=== PATIENT | male | born 1970 ===

== ENCOUNTER 2017-05-01 07:09 | Inpatient (IN) | payer BC ==
[2017-04-23 09:59] VITALS: BMI 32.5
[2017-05-01] MEDS ORDERED: Iohexol 240 (50 ml) ONE (08:45)
[2017-05-01] MEDS ORDERED: Bupivacaine 0.5% Inj(30mL) ONE ×2 (08:45→12:47)
[2017-05-01] MEDS ORDERED: Vancomycin 1 g Inj ONE (08:57)
[2017-05-01] MEDS ORDERED: Propofol 10 mg/ml Inj (20 ML) ONE (09:00)
[2017-05-01] MEDS ORDERED: Midazolam 2 MG/2 ML VIAL ONE (09:01)
[2017-05-01] MEDS ORDERED: Rocuronium 10 mg/ml (5 ml) ONE (09:26)
[2017-05-01] MEDS ORDERED: Succinylcholine 200 mg/10 ml Inj IV ONE (09:26)
[2017-05-01] MEDS ORDERED: Desflurane Inhalation Anesthetic Liq (240 ml) ONE ×2 (10:44→13:05)
[2017-05-01] MEDS ORDERED: Collagen Hemostat Powder ONE (12:21)
[2017-05-01] MEDS ORDERED: Absorbable Gelatin Sponge Size 100 ONE (12:21)
[2017-05-01] MEDS ORDERED: Morphine 1 mg/ml preservative-free Inj(Duramorph) ONE (12:32)
[2017-05-01] MEDS ORDERED: Lidocaine 1% Inj (20ml) ONE (12:47)
[2017-05-01] MEDS ORDERED: Glycopyrrolate 0.2 mg/ml (2ml vial) ONE (12:54)
[2017-05-01] MEDS ORDERED: Neostigmine Methylsulfate 3mg/3ml Syringe IV ONE (13:05)
[2017-05-01] MEDS ORDERED: HYDROmorphone 0.5 mg/0.5 ml ISec IVP PRN (13:31)
--- NOTE | 2017-05-01 13:43 | PCM.SURG1 ---
Surgeon's Initial Post Op Note - Surgeon's Notes Surgeon: Dr. Schaeffer Registered Nurse Renal: Dr. Hoang PGY3, PGY1, Bk OMS3 Pre-Operative Diagnosis: Chronic Cholecystitis Operative Findings: see op note Post-Operative Diagnosis: Acute on Chronic Cholecystitis Operation Performed: Laparoscopic converted to open cholecystectomy, and intraoperative cholangiogram Specimen/Specimens Removed: Gallbladder. cystic duct. stones Estimated Blood Loss: EBL {In ML}: 800 Blood Products Given: N/A Drains Used: Shadi Date of Surgery/Procedure: 05/01/17 Time of Surgery/Procedure: 09:30
[2017-05-01] MEDS ORDERED: Lactated Ringer's 1,000 ML IV SCH (13:45)
--- NOTE | 2017-05-01 17:06 | RAD ---
PROCEDURE: Operative cholangiogram HISTORY: R/O OBSTRUCTION COMPARISON: TECHNIQUE: Fluoroscopy was provided in the operating room. 77.8 seconds of fluoro time. Three images were submitted FINDINGS: There is contrast opacification of the common duct with flow into the duodenum. There is no obstruction. No filling defects visualized IMPRESSION: As above
[2017-05-01 17:19] LABS: BASO # 0.02 K/mm3 (0.0-2.0); BASO % 0.1 % (0.0-3.0); GRAN % 90.3 % (50.0-68.0); HEMATOCRIT 34.1 % (42.0-52.0); LYMPH # 0.7 (1.2-3.4); LYMPH % 5.1 % (22.0-35.0); MEAN CELL VOLUME 75.6 fl (80.0-105.0); MEAN CORPUSCULAR HEMOGLOBIN 25.3 pg (25.0-35.0); MEAN CORPUSCULAR HGB CONC 33.4 g/dl (31.0-37.0); MEAN PLATELET VOLUME 8.5 fl (7.0-11.0); MONO # 0.6 (0.1-0.6); MONO % 4.5 % (1.0-6.0); PLATELET COUNT 202 10^3/uL (120.0-450.0); RED CELL DISTRIBUTION WIDTH 13.2 % (11.5-14.5); WHITE BLOOD COUNT 13.6 10^3/ul (4.5-11.0)
[2017-05-01] MEDS: HYDROmorphone 0.2 mg/ml (25ml) 25 ML IV PRN (18:02)
[2017-05-01 18:23] LABS: BAND 4 % (0-2); NEUTROPHIL 86 % (50.0-70.0)
[2017-05-01] MEDS: Lactated Ringer's 1,000 ML IV SCH (19:37)
[2017-05-02] MEDS: Lactated Ringer's 1,000 ML IV SCH (01:11)
[2017-05-02] MEDS: HYDROmorphone 0.2 mg/ml (25ml) 25 ML IV PRN (06:18)
[2017-05-02 06:41] LABS: BASO # 0.01 K/mm3 (0.0-2.0); BASO % 0.1 % (0.0-3.0); EOS % 0.1 % (1.5-5.0); GRAN # 8.08 (1.4-6.5); GRAN % 80.4 % (50.0-68.0); LYMPH # 1.1 (1.2-3.4); LYMPH % 10.6 % (22.0-35.0); MEAN CELL VOLUME 76.2 fl (80.0-105.0); MEAN CORPUSCULAR HEMOGLOBIN 24.9 pg (25.0-35.0); MEAN CORPUSCULAR HGB CONC 32.7 g/dl (31.0-37.0); MEAN PLATELET VOLUME 8.5 fl (7.0-11.0); MONO # 0.9 (0.1-0.6); MONO % 8.8 % (1.0-6.0); RED CELL DISTRIBUTION WIDTH 13.4 % (11.5-14.5); WHITE BLOOD COUNT 10.1 10^3/ul (4.5-11.0)
[2017-05-02 07:11] LABS: ALB/GLOB RATIO 1.4 (1.1-1.8); ALKALINE PHOSPHATASE 59 U/L (38-126); ALT/SGPT 90 U/L (7-56); AST/SGOT 87 U/L (17-59); BLOOD UREA NITROGEN 11 mg/dL (7-21); CALCIUM 9.1 mg/dL (8.4-10.5); CARBON DIOXIDE 26 mmol/L (21-33); CHLORIDE 102 mmol/L (95-110); GFR AFRICAN-AMERICAN > 60; GLUCOSE,RANDOM 118 mg/dL (70-110); POTASSIUM 4.1 mmol/L (3.6-5.0); SODIUM 138 mmol/L (132-148); TOTAL PROTEIN 6.7 g/dL (5.8-8.3)
--- NOTE | 2017-05-02 08:06 | CP.PCM.PCO ---
Physician Communication Note - Physician Communication Note Physician Communication Note: OK clear liquids/ambulate in [place]
--- NOTE | 2017-05-02 09:57 | CP.PCM.PN ---
Subjective - Date & Time of Evaluation Date of Evaluation: 05/02/17 Time of Evaluation: 09:30 - Subjective Subjective: General Surgery Note for Dr. Schaeffer Patient seen and examined at bedside. No acute event overnight. Patient is s/p laparoscopic converted to open cholecystectomy POD #1. Patient complaining of abdominal pain. 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 Patient is tolerating some liquids. Patient admits anorexia. He denies flatus and bowel movement. Denies fever/chills, chest pain, shortness of breath, nausea /vomiting, diarrhea. Travon drain in place draining 110 cc since surgery. Objective - Vital Signs/Intake and Output Vital Signs (last 24 hours): Temp Pulse Resp BP Pulse Ox 98.6 F 95 H 14 113/66 98 05/02/17 08:48 05/02/17 08:48 05/02/17 08:48 05/02/17 08:48 05/02/17 08:48 Intake and Output: 05/02/17 05/02/17 06:59 18:59 Intake Total 939 Output Total 1700 Balance -761 - Medications Medications: Current Medications Hydromorphone HCl (Dilaudid 0.2 Mg/Ml Chief Maintenance Supervisor) 25 mls @ 0 mls/hr IV PRN PRN; Protocol; Per Protocol PRN Reason: ASSEMBLER PING PONG TABLE PER MD ORDER Last Admin: 05/02/17 06:18 Dose: 0.2 ml/hr, 0.2 mls/hr Lactated Ringer's (Lactated Ringer's) 1,000 mls @ 100 mls/hr IV .Q10H [facility] Last Admin: 05/02/17 01:11 Dose: 100 mls/hr Metoclopramide HCl (Reglan) 10 mg IV ONCE PRN PRN Reason: Nausea/Vomiting Ondansetron HCl (Zofran Inj) 4 mg IVP Q4 PRN PRN Reason: Nausea/Vomiting Last Admin: 05/02/17 09:50 Dose: 4 mg Pantoprazole Sodium (Protonix Inj) 40 mg IVP DAILY [facility] Last Admin: 05/02/17 09:43 Dose: 40 mg - Labs Labs: 05/02/17 05:30 05/02/17 05:30 - Constitutional Appears: No Acute Distress - Head Exam Head Exam: ATRAUMATIC, NORMOCEPHALIC - Eye Exam Eye Exam: EOMI Pupil Exam: PERRL Additional comments: Conjunctiva pallor - ENT Exam ENT Exam: Mucous Membranes Moist - Respiratory Exam Respiratory Exam: NORMAL BREATHING PATTERN - Cardiovascular Exam Cardiovascular Exam: REGULAR RHYTHM - GI/Abdominal Exam GI & Abdominal Exam: Soft, Tenderness (RUQ). absent: Distended, Firm, Guarding Additional comments: Dressings clean dry and intact travon drain in place with about 25 cc inside - Extremities Exam Extremities Exam: Normal Capillary Refill - Neurological Exam Neurological Exam: Alert, Awake, Oriented x3 - Psychiatric Exam Psychiatric exam: Normal Affect, Normal Mood - Skin Skin Exam: Dry, Pallor, Warm Assessment and Plan - Assessment and Plan (Free Text) Plan: 46 M s/p laparoscopic converted to open cholecystectomy POD #1 -CLD, will ADAT -Analgesics/Anti-emetics PRN -IV fluids -OOB/Ambulation -Incentive Spirometry -Discussed with Dr. Maksim Reyes PGY1
[2017-05-03 06:39] LABS: BASO # 0.03 K/mm3 (0.0-2.0); BASO % 0.4 % (0.0-3.0); EOS # 0.1 (0.0-0.7); EOS % 1.3 % (1.5-5.0); GRAN # 6.46 (1.4-6.5); GRAN % 79.2 % (50.0-68.0); HEMATOCRIT 29.4 % (42.0-52.0); LYMPH # 0.8 (1.2-3.4); LYMPH % 9.7 % (22.0-35.0); MEAN CORPUSCULAR HEMOGLOBIN 24.9 pg (25.0-35.0); MEAN CORPUSCULAR HGB CONC 32.3 g/dl (31.0-37.0); MEAN PLATELET VOLUME 8.3 fl (7.0-11.0); MONO # 0.8 (0.1-0.6); MONO % 9.4 % (1.0-6.0); RED CELL DISTRIBUTION WIDTH 13.6 % (11.5-14.5); WHITE BLOOD COUNT 8.2 10^3/ul (4.5-11.0)
[2017-05-03 06:51] LABS: ALB/GLOB RATIO 1.3 (1.1-1.8); ALKALINE PHOSPHATASE 53 U/L (38-126); ALT/SGPT 67 U/L (7-56); AST/SGOT 48 U/L (17-59); BILIRUBIN,TOTAL 0.9 mg/dL (0.2-1.3); BLOOD UREA NITROGEN 8 mg/dL (7-21); CALCIUM 8.5 mg/dL (8.4-10.5); CARBON DIOXIDE 30 mmol/L (21-33); CHLORIDE 104 mmol/L (98-107); GFR AFRICAN-AMERICAN > 60; GLUCOSE,RANDOM 101 mg/dL (70-110); POTASSIUM 3.8 mmol/L (3.6-5.0); SODIUM 139 mmol/L (132-148); TOTAL PROTEIN 6.1 g/dL (5.8-8.3)
--- NOTE | 2017-05-03 07:23 | CP.PCM.PN ---
Subjective - Date & Time of Evaluation Date of Evaluation: 05/03/17 Time of Evaluation: 07:33 - Subjective Subjective: General Surgery Note for Dr. Schaeffer Patient seen and examined at bedside. No acute event overnight. Patient is s/p laparoscopic converted to open cholecystectomy POD #2. Patient states abdominal pain is improving and is controlled with medications. He was switched from VERIFY REP to oral pain medications with IV ordered for breakthrough pain. Patient is tolerating liquids will advance to soft for breakfast. He denies flatus and bowel movement. Denies fever/chills, chest pain, shortness of breath, nausea/ vomiting, diarrhea. Objective - Vital Signs/Intake and Output Vital Signs (last 24 hours): Temp Pulse Resp BP Pulse Ox 98.6 F 80 20 129/78 100 05/02/17 20:02 05/02/17 16:00 05/02/17 20:02 05/02/17 20:02 05/02/17 16:00 Intake and Output: 05/03/17 05/03/17 06:59 18:59 Intake Total 660 Balance 660 - Medications Medications: Current Medications Hydromorphone HCl (Dilaudid 0.2 Mg/Ml [employer] As[employer]er) 25 mls @ 0 mls/hr IV PRN PRN; Protocol; Per Protocol PRN Reason: VERIFY REP PER MD ORDER Last Admin: 05/02/17 06:18 Dose: 0.2 ml/hr, 0.2 mls/hr Lactated Ringer's (Lactated Ringer's) 1,000 mls @ 100 mls/hr IV .Q10H [facility] Last Admin: 05/02/17 01:11 Dose: 100 mls/hr Metoclopramide HCl (Reglan) 10 mg IV ONCE PRN PRN Reason: Nausea/Vomiting Ondansetron HCl (Zofran Inj) 4 mg IVP Q4 PRN PRN Reason: Nausea/Vomiting Last Admin: 05/02/17 09:50 Dose: 4 mg Oxycodone/Acetaminophen (Percocet 5/325 Mg Tab) 2 tab PO Q4H PRN PRN Reason: Pain, moderate (4-7) Stop: 05/06/17 08:01 Pantoprazole Sodium (Protonix Inj) 40 mg IVP DAILY [facility] Last Admin: 05/02/17 09:43 Dose: 40 mg - Labs Labs: 05/03/17 06:00 05/03/17 06:00 - Constitutional Appears: No Acute Distress - Head Exam Head Exam: ATRAUMATIC, NORMOCEPHALIC - Eye Exam Eye Exam: EOMI, Normal appearance Pupil Exam: PERRL - ENT Exam ENT Exam: Mucous Membranes Moist - Respiratory Exam Respiratory Exam: NORMAL BREATHING PATTERN - Cardiovascular Exam Cardiovascular Exam: REGULAR RHYTHM - GI/Abdominal Exam GI & Abdominal Exam: Soft, Tenderness. absent: Distended, Firm, Rigid, Rebound Additional comments: travon drain in place draining 50 cc over 24 hrs dressings changed today - incisions tender but clean dry and intact - Extremities Exam Extremities Exam: Normal Capillary Refill - Neurological Exam Neurological Exam: Alert, Awake, CN II-XII Intact, Oriented x3 - Psychiatric Exam Psychiatric exam: Normal Affect, Normal Mood - Skin Skin Exam: Dry, Normal Color, Warm Assessment and Plan - Assessment and Plan (Free Text) Plan: 46 M s/p laparoscopic converted to open cholecystectomy POD #2 -Soft diet - ADAT -Analgesics/Anti-emetics PRN -IV fluids -OOB/Ambulation/Incentive Spirometry -Discussed with Dr. Maksim Reyes PGY1
[2017-05-03] MEDS ORDERED: HYDROmorphone 0.5 mg/0.5 ml ISec IVP PRN ×2 (07:44→07:47)
[2017-05-03] MEDS: Oxycodone/Acetaminophen 5/325 mg Tab PO PRN (18:03)
[2017-05-03] MEDS ORDERED: Benzocaine/Menthol (Cepacol) Lozenge MT PRN (19:07)
[2017-05-04] MEDS: Oxycodone/Acetaminophen 5/325 mg Tab PO PRN (04:03)
--- NOTE | 2017-05-04 11:09 | CP.PCM.PN ---
<Amish Reyes - Last Filed: 05/04/17 11:16> Subjective - Date & Time of Evaluation Date of Evaluation: 05/04/17 Time of Evaluation: 07:10 - Subjective Subjective: General Surgery Note for Dr. Schaeffer Patient seen and examined at bedside. No acute event overnight. Patient is s/p laparoscopic converted to open cholecystectomy POD #3. Patient states abdominal pain is controlled. Patient is tolerating diet. He denies flatus and bowel movement. He has been out of bed and ambulating without difficulty. Denies fever /chills, chest pain, shortness of breath, nausea/vomiting, diarrhea. Shadi drain drained 75 cc over last 24 hrs. Objective - Vital Signs/Intake and Output Vital Signs (last 24 hours): Temp Pulse Resp BP Pulse Ox 99 F 73 20 133/86 97 05/04/17 08:59 05/04/17 08:59 05/04/17 08:59 05/04/17 08:59 05/04/17 08:59 Intake and Output: 05/04/17 05/04/17 06:59 18:59 Intake Total 960 Output Total 15 25 Balance 945 -25 - Medications Medications: Current Medications Benzocaine/Menthol (Cepacol Sore Throat) 1 sg MT Q2H PRN PRN Reason: Sore Throat Last Admin: 05/03/17 21:25 Dose: 1 sg Docusate Sodium (Colace) 100 mg PO DAILY [facility] Last Admin: 05/04/17 09:25 Dose: 100 mg Hydromorphone HCl (Dilaudid) 0.5 mg IVP Q3H PRN PRN Reason: Pain, severe (8-10) Metoclopramide HCl (Reglan) 10 mg IV ONCE PRN PRN Reason: Nausea/Vomiting Ondansetron HCl (Zofran Inj) 4 mg IVP Q4 PRN PRN Reason: Nausea/Vomiting Last Admin: 05/02/17 09:50 Dose: 4 mg Pantoprazole Sodium (Protonix Inj) 40 mg IVP DAILY [facility] Last Admin: 05/04/17 09:23 Dose: 40 mg Tramadol HCl (Ultram) 50 mg PO Q4 PRN PRN Reason: Pain, moderate (4-7) - Labs Labs: 05/03/17 06:00 05/03/17 06:00 - Constitutional Appears: No Acute Distress - Head Exam Head Exam: ATRAUMATIC, NORMOCEPHALIC - Eye Exam Eye Exam: Normal appearance Pupil Exam: PERRL - ENT Exam ENT Exam: Mucous Membranes Dry - Respiratory Exam Respiratory Exam: NORMAL BREATHING PATTERN - Cardiovascular Exam Cardiovascular Exam: REGULAR RHYTHM - GI/Abdominal Exam GI & Abdominal Exam: Soft, Tenderness (at incisions). absent: Distended, Firm, Guarding, Rigid, Rebound Additional comments: shadi drain in place draining 75 cc over 24 hrs incisions tender but dressing clean dry and intact - Extremities Exam Extremities Exam: Normal Capillary Refill - Back Exam Back Exam: absent: CVA tenderness (L), CVA tenderness (R) - Neurological Exam Neurological Exam: Alert, Awake, CN II-XII Intact, Oriented x3 - Psychiatric Exam Psychiatric exam: Normal Affect, Normal Mood - Skin Skin Exam: Dry, Intact, Normal Color, Warm Assessment and Plan - Assessment and Plan (Free Text) Plan: 46 M s/p laparoscopic converted to open cholecystectomy POD #3 -Regular diet -Analgesics/Anti-emetics PRN -OOB/Ambulation/Incentive Spirometry -Discussed with Dr. Maksim Reyes PGY1 <Chris Schaeffer - Last Filed: 05/04/17 13:21> Objective - Vital Signs/Intake and Output Vital Signs (last 24 hours): Temp Pulse Resp BP Pulse Ox 99 F 73 20 133/86 97 05/04/17 08:59 05/04/17 08:59 05/04/17 08:59 05/04/17 08:59 05/04/17 08:59 Intake and Output: 05/04/17 05/04/17 06:59 18:59 Intake Total 960 Output Total 15 25 Balance 945 -25 - Medications Medications: Current Medications Benzocaine/Menthol (Cepacol Sore Throat) 1 sg MT Q2H PRN PRN Reason: Sore Throat Last Admin: 05/03/17 21:25 Dose: 1 sg Docusate Sodium (Colace) 100 mg PO DAILY [facility] Last Admin: 05/04/17 09:25 Dose: 100 mg Hydromorphone HCl (Dilaudid) 0.5 mg IVP Q3H PRN PRN Reason: Pain, severe (8-10) Metoclopramide HCl (Reglan) 10 mg IV ONCE PRN PRN Reason: Nausea/Vomiting Ondansetron HCl (Zofran Inj) 4 mg IVP Q4 PRN PRN Reason: Nausea/Vomiting Last Admin: 05/02/17 09:50 Dose: 4 mg Pantoprazole Sodium (Protonix Inj) 40 mg IVP DAILY [facility] Last Admin: 05/04/17 09:23 Dose: 40 mg Tramadol HCl (Ultram) 50 mg PO Q4 PRN PRN Reason: Pain, moderate (4-7) - Labs Labs: 05/03/17 06:00 05/03/17 06:00 Assessment and Plan - Assessment and Plan (Free Text) Assessment: PO 3: Starting diet/ambulating still draining sanguinous drainage(75cc) Cont Rx R Maksim BLOOD FACS
[2017-05-05 07:39] VITALS: BP 118/68; PULSE 73; RESP 20; TEMP 98.1; O2SAT 98
[2017-05-05 07:48] LABS: BASO # 0.03 K/mm3 (0.0-2.0); BASO % 0.6 % (0.0-3.0); EOS # 0.2 (0.0-0.7); EOS % 3.4 % (1.5-5.0); GRAN # 3.04 (1.4-6.5); GRAN % 65.1 % (50.0-68.0); LYMPH % 20.8 % (22.0-35.0); MEAN CELL VOLUME 76.2 fl (80.0-105.0); MEAN CORPUSCULAR HEMOGLOBIN 24.8 pg (25.0-35.0); MEAN CORPUSCULAR HGB CONC 32.5 g/dl (31.0-37.0); MEAN PLATELET VOLUME 8.4 fl (7.0-11.0); MONO # 0.5 (0.1-0.6); MONO % 10.1 % (1.0-6.0); RED CELL DISTRIBUTION WIDTH 13.2 % (11.5-14.5); WHITE BLOOD COUNT 4.7 10^3/ul (4.5-11.0)
[2017-05-05 08:16] LABS: ALB/GLOB RATIO 1.3 (1.1-1.8); ALKALINE PHOSPHATASE 70 U/L (38-126); ALT/SGPT 69 U/L (7-56); AST/SGOT 41 U/L (17-59); BILIRUBIN,TOTAL 0.7 mg/dL (0.2-1.3); BLOOD UREA NITROGEN 11 mg/dL (7-21); CALCIUM 9.3 mg/dL (8.4-10.5); CARBON DIOXIDE 28 mmol/L (21-33); CHLORIDE 104 mmol/L (95-110); GFR AFRICAN-AMERICAN > 60; GLUCOSE,RANDOM 94 mg/dL (70-110); POTASSIUM 3.9 mmol/L (3.6-5.0); SODIUM 140 mmol/L (132-148)
--- NOTE | 2017-05-05 08:57 | CP.PCM.PN ---
Objective - Vital Signs/Intake and Output Vital Signs (last 24 hours): Temp Pulse Resp BP Pulse Ox 98.1 F 73 20 118/68 98 05/05/17 06:00 05/05/17 06:00 05/05/17 06:00 05/05/17 06:00 05/05/17 06:00 Intake and Output: 05/05/17 05/05/17 06:59 18:59 Intake Total 720 Output Total 20 Balance 700 - Medications Medications: Current Medications Benzocaine/Menthol (Cepacol Sore Throat) 1 sg MT Q2H PRN PRN Reason: Sore Throat Last Admin: 05/03/17 21:25 Dose: 1 sg Docusate Sodium (Colace) 100 mg PO DAILY [facility] Last Admin: 05/04/17 09:25 Dose: 100 mg Hydromorphone HCl (Dilaudid) 0.5 mg IVP Q3H PRN PRN Reason: Pain, severe (8-10) Metoclopramide HCl (Reglan) 10 mg IV ONCE PRN PRN Reason: Nausea/Vomiting Ondansetron HCl (Zofran Inj) 4 mg IVP Q4 PRN PRN Reason: Nausea/Vomiting Last Admin: 05/02/17 09:50 Dose: 4 mg Pantoprazole Sodium (Protonix Inj) 40 mg IVP DAILY [facility] Last Admin: 05/04/17 09:23 Dose: 40 mg Tramadol HCl (Ultram) 50 mg PO Q4 PRN PRN Reason: Pain, moderate (4-7) Last Admin: 05/04/17 16:14 Dose: 50 mg - Labs Labs: 05/05/17 07:00 05/05/17 07:00
--- NOTE | 2017-05-05 11:17 | CP.PCM.DIS ---
Provider - Provider Date of Admission: 05/01/17 13:40 Attending physician: Chris Schaeffer MD Primary care physician: Izaiah Knox APN Time Spent in preparation of Discharge (in minutes): 45 Diagnosis - Discharge Diagnosis (1) S/P cholecystectomy Status: Acute Hospital Course - Lab Results Lab Results: Micro Results 05/01/17 15:00 Gallbladder Gram Stain - Final 05/01/17 15:00 Gallbladder Anaerobic Culture - Final NO ANAEROBES ISOLATED. 05/01/17 15:00 Gallbladder Wound Culture - Preliminary No growth. Most Recent Lab Values WBC 4.7 10^3/ul (4.5-11.0) D 05/05/17 07:00 RBC 4.20 10^6/uL (3.5-6.1) 05/05/17 07:00 Hgb 10.4 g/dL (14.0-18.0) L 05/05/17 07:00 Hct 32.0 % (42.0-52.0) L 05/05/17 07:00 MCV 76.2 fl (80.0-105.0) L 05/05/17 07:00 MCH 24.8 pg (25.0-35.0) L 05/05/17 07:00 MCHC 32.5 g/dl (31.0-37.0) 05/05/17 07:00 RDW 13.2 % (11.5-14.5) 05/05/17 07:00 Plt Count 207 10^3/uL (120.0-450.0) 05/05/17 07:00 MPV 8.4 fl (7.0-11.0) 05/05/17 07:00 Gran % 65.1 % (50.0-68.0) 05/05/17 07:00 Lymph % (Auto) 20.8 % (22.0-35.0) L 05/05/17 07:00 Grady % (Auto) 10.1 % (1.0-6.0) H 05/05/17 07:00 Eos % (Auto) 3.4 % (1.5-5.0) 05/05/17 07:00 Baso % (Auto) 0.6 % (0.0-3.0) 05/05/17 07:00 Gran # 3.04 (1.4-6.5) 05/05/17 07:00 Lymph # 1.0 (1.2-3.4) L 05/05/17 07:00 Grady # 0.5 (0.1-0.6) 05/05/17 07:00 Eos # 0.2 (0.0-0.7) 05/05/17 07:00 Baso # 0.03 K/mm3 (0.0-2.0) 05/05/17 07:00 Neutrophils % (Manual) 86 % (50.0-70.0) H 05/01/17 17:10 Band Neutrophils % 4 % (0-2) H 05/01/17 17:10 Lymphocytes % (Manual) 7 % (22.0-35.0) L 05/01/17 17:10 Monocytes % (Manual) 3 % (1.0-6.0) 05/01/17 17:10 Sodium 140 mmol/L (132-148) 05/05/17 07:00 Potassium 3.9 mmol/L (3.6-5.0) 05/05/17 07:00 Chloride 104 mmol/L (95-110) 05/05/17 07:00 Carbon Dioxide 28 mmol/L (21-33) 05/05/17 07:00 Anion Gap 12 (10-20) 05/05/17 07:00 BUN 11 mg/dL (7-21) 05/05/17 07:00 Creatinine 0.9 mg/dL (0.8-1.5) 05/05/17 07:00 Est GFR ( Amer) > 60 05/05/17 07:00 Est GFR (Non-Af Amer) > 60 05/05/17 07:00 Random Glucose 94 mg/dL (70-110) 05/05/17 07:00 Calcium 9.3 mg/dL (8.4-10.5) 05/05/17 07:00 Total Bilirubin 0.7 mg/dL (0.2-1.3) 05/05/17 07:00 AST 41 U/L (17-59) 05/05/17 07:00 ALT 69 U/L (7-56) H 05/05/17 07:00 Alkaline Phosphatase 70 U/L (38-126) 05/05/17 07:00 Total Protein 7.0 g/dL (5.8-8.3) 05/05/17 07:00 Albumin 4.0 g/dL (3.0-4.8) 05/05/17 07:00 Globulin 3.1 gm/dL 05/05/17 07:00 Albumin/Globulin Ratio 1.3 (1.1-1.8) 05/05/17 07:00 - Hospital Course Hospital Course: 46 M who is s/p laparoscopic converted to open cholecystectomy POD #4 initially came in for elective procedure. Patient was kept in the hospital due to the open procedure and blood loss. Daily was clinically improving. Hgb stabilized and trending up. Drain output steadily decreasing. Patient tolerating diet and had a bowel movement. Patient is to follow up as outpatient this week with Dr. Schaeffer. Discharge Exam - Head Exam Head Exam: ATRAUMATIC, NORMOCEPHALIC - Eye Exam Eye Exam: EOMI, Normal appearance Pupil Exam: PERRL - ENT Exam ENT Exam: Mucous Membranes Moist - Respiratory Exam Respiratory Exam: NORMAL BREATHING PATTERN - Cardiovascular Exam Cardiovascular Exam: REGULAR RHYTHM - GI/Abdominal Exam GI & Abdominal Exam: Soft, Tenderness (incisional). absent: Distended, Firm, Guarding, Rebound Additional comments: drain in place with about 20 cc of sanguinous fluids - output decreasing dressings clean dry and intact - Extremities Exam Extremities exam: normal capillary refill, pedal pulses present - Neurological Exam Neurological exam: Alert, CN II-XII Intact, Oriented x3 - Psychiatric Exam Psychiatric exam: Normal Affect, Normal Mood - Skin Skin Exam: Dry, Intact, Normal Color, Warm Discharge Plan - Follow Up Plan Condition: GOOD Disposition: HOME/ ROUTINE Additional Instructions: Take ultram as needed for pain may shower keep incisions clean, dry and intact Follow up with Dr. Schaeffer as outpatient within 1 week Referrals: Izaiah Knox, KHADRA [Primary Care Provider] -
--- NOTE | 2017-05-10 15:53 | OP ---
PROCEDURE DATE: 05/01/2017 SURGEON: Dr. Chris Schaeffer. ELECTRIC RANGE ASSEMBLER: Dee Hoang D.O., PGY2. AMBULATORY SERVICE REPRESENTATIVE: Dr. Awad. PREOPERATIVE DIAGNOSES: 1. Cholecystitis-cholelithiasis. 2. Gastroesophageal reflux disease. POSTOPERATIVE DIAGNOSES: 1. Chronic gangrenous cholecystitis-cholelithiasis. 2. Gastroesophageal reflux disease. PROCEDURES: 1. Exploratory laparoscopy. 2. Conversion to open laparotomy. 3. Cholecystectomy with operative cholangiogram. OPERATIVE INDICATION: The patient is a 46-year-old [place]e male with a 1-month history of biliary colic treated with antibiotic, approved by his insurance for elective laparoscopic cholecystectomy and found during this period of time to have GERD and has been on proton-pump inhibitor therapy. Risks, benefits and alternatives with their explanation of benefits have been explained to the patient and to his and he signed the informed consent for the same day surgical procedure. OPERATIVE PROCEDURE: The patient was brought from the same day surgical unit to the operating room. He was identified by his wristband and underwent timeout procedure. He was then placed on the operative table in a spine manner, underwent the induction of general anesthesia and the insertion of an endotracheal tube and sequential compression devises were placed on his lower extremities. An orogastric tube was employed for gastric decompression and the abdomen was electrically clipped, prepped with Hibiclens chlorhexidine preparation and the patient was then aseptically draped. The umbilicus was elevated on towel clips, it was infiltrated with bupivacaine and incision made and a Veress needle inserted into the peritoneal cavity and the abdomen insufflated with carbon dioxide gas to 14 mmHg. The needle was removed and replaced with an 11-mm port and the Storz operating laparoscope inserted and the abdomen explored. Omentum covers the liver at this point and remainder of the exam was noncontributory. Under direct vision, another 11-mm port was placed in the right upper quadrant in the epigastrium just below the xyphoid and two 5-mm ports were placed in the right upper quadrant at the level of the umbilicus. The patient was rotated to the left in a reverse Trendelenburg position and the omentum was freed from the gallbladder and a very red, inflamed, chronically infected gallbladder was encountered with extreme congestion, thickening and significant difficulty in allowing purchase to grab the gallbladder. Approximately 2 hours were now spent dissecting the olimpia hepatis with meticulous technique to expose the cystic artery and cystic duct and it became apparent after all this time that it would be dangerous to continue on and the procedure would be converted to an open exploration. The structures were not well cleared. There was ongoing oozing of blood during the entire procedure and this required significant meticulous dissection and still could not safely elucidate the structures. The patient's now placed level of the ports were removed. The patient was reprepped and a right subcostal incision (Jenny) was performed carrying through the skin and subcutaneous tissues down to the rectus musculature. The musculature was transected with a cautery current and hemostasis contained with same. The intercostal nerve at this point was now retracted laterally and the falciform ligament was transected between Adelia clamps and ligated with 0 chromic catgut after the peritoneum was opened. The previous oozing of blood was evacuated and using the Bookwalter retractor, the omentum and abdominal contents were retracted away from the gallbladder exposing same. The olimpia hepatis was markedly inflamed and thickened and was not a safe dissection and a prograde dissection from the liver and gallbladder was performed finding the space between the gallbladder and the liver and bluntly dissecting down using the electrocoagulating cautery for hemostasis. The oozing liver edge due to the inflammatory nature was controlled with multiple laparotomy tapes and were held in place for 10 minutes and hemostasis was controlled at this point. The gallbladder was dissected off the olimpia hepatis and the cystic artery and cystic duct were dissected free, found to be markedly inflamed with several layers of inflammation and thick adhesion and the cystic artery was ligated with hemoclips and 2-0 chromic catgut ligature. The cystic duct was opened, multiple stones removed from the same and the gallbladder was cultured aerobically and anaerobically at this point. The intraoperative cholangiogram was performed, but before injecting dye, swelling was seen exiting below the cystic duct and further dissection was carried on down to the common duct and two stones were found impacted and perforating the cystic duct before the common. The stones were removed. The cystic duct and common duct were completely exposed and freed of adhesions and three hemoclips were placed at this point below the opening of the cystic duct after doing the cholangiogram which was interpreted as free flow of contrast throughout the biliary tree and into the duodenum. The gallbladder was then submitted to pathology in formalin and the packs were removed and replaced with Gelfoam with Avitene and a packing formation to stop further bleeding and a Shadi drain placed to the abdomen wall by trocar technique was now placed in the liver bed in the hepatorenal space of [place]. Packs, tapes and retractors were removed and the peritoneum closed with 0 Polysorb continuous suture and the interior fascia with #1 Novafil suture. The subcutaneous tissues were lavaged with Clorpactin solution, closed with 3-0 Polysorb continuous suture and the skin with the AutoSuture skin stapler. The midline incision at the umbilicus was closed with an interrupted [id number] Vicryl suture. The skin was then closed with subcuticular absorbable suture and Steri-Strip. The patient was now awakened, was extubated and was transported to the recovery room in a satisfactory condition. Sponge, instrument and suture count were verified and correct at the end of the procedure. Estimated blood loss by the anesthesiologist and by the surgical team was less than 800 mL of blood and the patient was not transfused due to excellent vascular stability and no loss of blood pressure or tachycardia. The patient will be followed postoperatively on the medical surgical floor and followup blood counts will be taken. The surgical assistance were present throughout from beginning to end and were extremely helpful and was a very difficult dissection and assisting in helping with the procedure and closure. This dictation will be electronically signed without being read. Chris Schaeffer MD
== END 2017-05-05 15:30 | disposition home or self-care (01) | DRG 416 ==
LOC: SDS 07:09 → ERH 13:40 → 3RNO 15:29
PROVIDERS: ADMIT Surgery; ATTEND Surgery
PROC: 0FJ44ZZ Inspection of Gallbladder, Percutaneous Endoscopic Approach (ICD-10-PCS; 2017-05-01)
PROC: BF131ZZ Fluoroscopy of Gallbladder and Bile Ducts using Low Osmolar Contrast (ICD-10-PCS; 2017-05-01)
PROC: 0FT40ZZ Resection of Gallbladder, Open Approach (ICD-10-PCS; principal; 2017-05-01 09:00)
DX: K80.12 Calculus of gallbladder with acute and chronic cholecystitis without obstruction (principal); K21.9 Gastro-esophageal reflux disease without esophagitis; Z53.31 Laparoscopic surgical procedure converted to open procedure